=== PATIENT | female | born 1995 | race Caucasian/White ===

== ENCOUNTER 2017-03-24 11:42 | Emergency (ER) | payer OTHER ==
[2017-03-24 11:48] VITALS: BP 119/70; PULSE 61; RESP 18; TEMP 98.4; O2SAT 99
[2017-03-24 12:11] LABS: COLOR YELLOW; LEUKOCYTE ESTERASE,URINE 3+ (NEGATIVE); NITRITE,URINE NEGATIVE (NEGATIVE)
[2017-03-24 12:17] LABS: RBC,URINE 50-182 /hpf (0-3); WBC,URINE 50-182 /hpf (0-3)
[2017-03-24] MEDS ORDERED: CEPHALEXIN 500 MG CAP PO ONE (13:17)
--- NOTE | 2017-03-24 13:22 | EDPHY ---
H & P Time Seen by Provider: 03/24/17 13:16 HPI/ROS: CHIEF COMPLAINT: Urinary complaints. HISTORY OF PRESENT ILLNESS: The patient is a 22-year-old female with history of recurrent UTI's who presents with multiple urinary complaints that started 3 days ago. Patient reports frequency, dysuria, and hematuria. She additionally complains of moderate suprapubic pain. The patient states these symptoms are more severe than her usual UTIs. She has not seen a urologist in the past. She denies fever, nausea, vomiting, or diarrhea. REVIEW OF SYSTEMS: A comprehensive 10 point review of systems is otherwise negative aside from elements mentioned in the history of present illness. Past Medical/Surgical History: Recurrent UTIs. Social History: Here with mother. Smoking Status: Former smoker Physical Exam: General Appearance: Alert, pleasant Eyes: Pupils equal and round, no conjunctival pallor or injection Gastrointestinal: Suprapubic tenderness Back: No CVA tenderness Neurological: A&O, nonfocal, normal gait Skin: Warm and dry, no rash Extremities: Normal appearance Psychiatric: Mood and affect normal Constitutional: Initial Vital Signs Temperature (C) 36.9 C 03/24/17 11:46 Heart Rate 61 03/24/17 11:46 Respiratory Rate 18 03/24/17 11:46 Blood Pressure 119/70 03/24/17 11:46 O2 Sat (%) 99 03/24/17 11:46 O2 Delivery Mode Room Air Allergies/Adverse Reactions: No Known Allergies Allergy (Unverified 03/24/17 11:45) Home Medications: Medication Instructions Recorded Azo Bladder Control Capsule 03/24/17 Cephalexin [Keflex (*)] 500 mg PO QID #20 cap 03/24/17 Medical Decision Making ED Course/Re-evaluation: Patient with history of recurrent UTIs presents with hematuria, dysuria, and frequency. UA is positive for leukocyte esterase. On exam she has suprapubic tenderness. I started the patient on Keflex. She was referred to a Urologist for further evaluation. - Data Points Laboratory Results: 03/24/17 03/24/17 11:48 11:48 Urine Color YELLOW Urine Appearance MODERATELY TURBID Urine pH 6.0 (5.0-7.5) Ur Specific [place] 1.014 (1.002-1.030) Urine Protein 2+ H (NEGATIVE) Urine Ketones NEGATIVE (NEGATIVE) Urine Blood 3+ H (NEGATIVE) Urine Nitrate NEGATIVE (NEGATIVE) Urine Bilirubin NEGATIVE (NEGATIVE) Urine Urobilinogen NEGATIVE EU EU (0.2-1.0) Ur Leukocyte Esterase 3+ H (NEGATIVE) Urine RBC 50-182 /hpf H /hpf (0-3) Urine WBC 50-182 /hpf H /hpf (0-3) Ur Epithelial Cells TRACE /lpf /lpf (NONE-1+) Urine Glucose NEGATIVE (NEGATIVE) Urine Test NEGATIVE Medications Given: Discontinued Medications Cephalexin HCl (Keflex) 500 mg PO EDNOW ONE PRN Reason: Protocol Stop: 03/24/17 13:18 Last Admin: 03/24/17 13:27 Dose: 500 mg Departure - Departure Disposition: Home, Routine, Self-Care Clinical Impression: UTI (urinary tract infection) Qualifiers: Urinary tract infection type: site unspecified Hematuria presence: with hematuria Qualified Code(s): N39.0 - Urinary tract infection, site not specified Condition: Good Instructions: Urinary Tract Infection in Women (ED) Additional Instructions: Take full course of Keflex as prescribed. I recommend cotton underwear, no tight fitting clothing, and urinating after intercourse. You have been referred to a urologist below, please call to arrange a followup appointment. Referrals: Haris Corona MD [Medical Doctor] - As per Instructions Prescriptions: Cephalexin [Keflex (*)] 500 mg PO QID #20 cap Report Scribed for: Juliane Brar Report Scribed by: Sunita Cowan Date of Report: 03/24/17 Time of Report: 13:24 Physician Review and Approval Statement: 03/24/17 13:25 Portions of this note were transcribed by a medical billing specialist. I personally performed the history, physical exam, and medical decision-making; and confirmed the accuracy of the information in the transcribed note.
== END 2017-03-24 13:31 | disposition home or self-care (01) ==
DX: N39.0 Urinary tract infection, site not specified (principal); B96.89 Other specified bacterial agents as the cause of diseases classified elsewhere; Z87.891 Personal history of nicotine dependence